=== PATIENT | female | born 1965 | race Two or more races ===

== ENCOUNTER 2024-07-17 13:03 | Emergency (ER) | payer OTHER ==
[~2024-07-17] VITALS: Ht 152.4 cm; Wt 81.6 kg
[2024-07-17] MEDS ORDERED: HYZAAR 100-12.1 EACH PO (13:16)
[2024-07-17] MEDS ORDERED: 0.9 % SODIUM CHLORIDE 1,000 ML IV ONE (15:45)
[2024-07-17] MEDS ORDERED: ONDANSETRON HCL 2 MG/ML VIAL IV ONE (15:45)
[2024-07-17] MEDS ORDERED: FAMOtidine 10 MG/ML (4ML VIAL) IV ONE (15:45)
[2024-07-17 16:36] LABS: HEMATOCRIT 38.9 % (36.0-45.00); HEMOGLOBIN 13.1 g/dL (12.0-15.00); MEAN CELL VOLUME 79.5 fL (80.00-100.00); MEAN CORPUSCULAR HEMOGLOBIN 26.8 pg (27.00-32.0); MEAN CORPUSCULAR HGB CONC 33.7 g/dl (32.0-36.0); PLATELET COUNT 149 K/uL (150-450); RED BLOOD COUNT 4.89 M/uL (4.00-6.00); RED CELL DISTRIBUTION WIDTH 15.4 % (11.5-14.5)
[2024-07-17 17:03] LABS: ALBUMIN 3.3 gm/dL (3.4-5.0); BILIRUBIN TOTAL 0.4 mg/dL (0.3-1.2); CALCIUM 9.4 mg/dL (8.5-10.1); CREATININE SERUM 1.07 mg/dL (0.55-1.02); GFR 52.49; GLOBULINA 4.3 G/DL (2.4-3.5); POTASSIUM 3.24 mEq/L (3.5-5.1); TOTAL PROTEIN 7.6 gm/dL (6.4-8.2)
[2024-07-17] MEDS ORDERED: CEFTRIAXONE SODIUM 1,000 MG VIAL IM ONE (17:30)
== END 2024-07-17 17:33 | disposition home or self-care (01) ==
LOC: ER 13:05
PROVIDERS: General Practice
DX: A90 Dengue fever [classical dengue] (principal); R11.10 Vomiting, unspecified